=== PATIENT | female | born 1950 | race Caucasian/White ===

== ENCOUNTER 2017-02-21 11:57 | Emergency (ER) | payer OTHER ==
[2017-02-21 12:11] VITALS: BP 137/74; PULSE 70; TEMP 98.3; BMI 35.9
--- NOTE | 2017-02-21 13:15 | PDOC ---
History of Present Illness - General Chief Complaint: Cold Symptoms Stated Complaint: COLD, HEADACHES Time Seen by Provider: 02/21/17 12:22 History Source: Patient Exam Limitations: No Limitations - History of Present Illness Initial Comments: 02/21/17 13:09 66 yr female history of HTN, hypothyroid c/o cough ear pain nasal discharge and sinus congestion. no fever no chills no abd pain and son with same symptoms no chest pain no SOB 02/21/17 13:10 Severity: reports: mild Associated Symptoms: reports: nasal congestion. denies: facial pain Past History - Past Medical History Allergies/Adverse Reactions: Allergies Allergy/AdvReac Type Severity Reaction Status Date / Time No Known Allergies Allergy Verified 02/21/17 12:11 Home Medications: Ambulatory Orders Levothyroxine [Synthroid -] 25 mcg PO DAILY 01/27/13 Olmesartan Medoxomil [Benicar -] 20 mg PO DAILY 01/27/13 Omeprazole [Prilosec (RX)] 40 mg PO DAILY 01/27/13 Albuterol Sulfate Inhaler - [Ventolin HFA Inhaler -] 1 - 2 inh PO Q4H #1 inhaler 01/16/15 Cephalexin Monohydrate [Keflex -] 500 mg PO Q8H #6 capsule 03/04/15 Levothyroxine [Synthroid -] 50 mcg PO DAILY@0700 #30 tablet 03/04/15 Polyethylene Glycol 3350 [Miralax 119 gm Btl -] 17 gm PO DAILY bottle 03/04/15 Triamcinolone Acetonide [Nasacort] 10.8 ml NS BID #1 bottle 02/21/17 COPD: No GI Disorders: Yes HTN: Yes Kidney Stones: Yes (?) Thyroid Disease: Yes (HYPO) - Surgical History Abdominal Surgery: No Cholecystectomy: Yes - Suicide/Smoking/Psychosocial Hx Smoking Status: No Smoking History: Never smoked Have you smoked in the past 12 months: No Number of Cigarettes Smoked Daily: 0 Information on smoking cessation initiated: No Hx Alcohol Use: No Drug/Substance Use Hx: No Substance Use Type: None Hx Substance Use Treatment: No *Physical Exam - Vital Signs Last Vital Signs Temp Pulse Resp BP Pulse Ox 98.3 F 70 16 137/74 98 02/21/17 12:07 02/21/17 12:07 02/21/17 12:07 02/21/17 12:07 02/21/17 12:07 - Physical Exam General Appearance: Yes: Nourished, Appropriately Dressed HEENT: positive: EOMI, TASHA, Normal Voice, Nasal Congestion, Sinus Tenderness Neck: positive: Supple. negative: Lymphadenopathy (R), Lymphadenopathy (L) Respiratory/Chest: positive: Lungs Clear, Normal Breath Sounds Cardiovascular: positive: Regular Rhythm, Regular Rate Gastrointestinal/Abdominal: positive: Normal Bowel Sounds, Soft Musculoskeletal: positive: Normal Inspection Extremity: positive: Normal Capillary Refill, Normal Inspection, Normal Range of Motion Integumentary: positive: Normal Color, Dry, Warm Neurologic: positive: concrete inspector II-XII NML intact, Fully Oriented, Alert, Normal Mood/ Affect Medical Decision Making - Medical Decision Making 02/21/17 13:11 cc: cough nasal congestion, sinus tenderness non toxic no sob or chest pain well appearing no distress pt taking nyquil last night 02/21/17 13:12 will prescribe nasonex spray and corcidan BP for cough and cold medicine *DC/Admit/Observation/Transfer Diagnosis at time of Disposition: URI, acute, Nasal sinus congestion - Discharge Dispostion Disposition: HOME Condition at time of disposition: Good - Prescriptions Prescriptions: Triamcinolone Acetonide [Nasacort] 10.8 ml NS BID #1 bottle - Referrals - Patient Instructions Additional Instructions: use the nasal spray as directed use the over the counter cough and cold medicine called Corcidan for patients with high blood pressure follow with your doctor in 1-2 days for follow up drink pleanty of fluids at home take tylenol 650mg every 4-6hrs for pain as needed return to ER for any worsening symptoms - Post Discharge Activity
== END 2017-02-21 13:42 | disposition home or self-care (01) ==
LOC: JERFT 11:57
DX: J06.9 Acute upper respiratory infection, unspecified (principal); J34.89 Other specified disorders of nose and nasal sinuses; I10 Essential (primary) hypertension; E03.9 Hypothyroidism, unspecified
CPT/HCPCS: 99281-25